=== PATIENT | female | born 1950 | race Caucasian/White ===

== ENCOUNTER → 2017-08-15 | Outpatient (CLI) | payer MEDICARE, MEDICAID | END | disposition home or self-care (01) | LOC: CFH 14:27 | PROVIDERS: ATTEND Family Medicine | DX: R05 Cough (principal) | CPT/HCPCS: 71020 ==

== ENCOUNTER → 2018-02-08 | Outpatient (CLI) | payer MEDICARE, MEDICAID | END | disposition home or self-care (01) | LOC: CFH 13:24 | PROVIDERS: ATTEND Family Medicine | DX: Z12.31 Encounter for screening mammogram for malignant neoplasm of breast (principal); Z13.820 Encounter for screening for osteoporosis; E04.2 Nontoxic multinodular goiter; N95.9 Unspecified menopausal and perimenopausal disorder | CPT/HCPCS: 76536; 77080; 77067 ==

== ENCOUNTER → 2018-11-20 | Outpatient (CLI) | payer MEDICARE, MEDICAID | END | disposition home or self-care (01) | LOC: CFH 08:37 | PROVIDERS: ATTEND Family Medicine | DX: R10.9 Unspecified abdominal pain (principal) | CPT/HCPCS: 76700 ==

== ENCOUNTER → 2019-02-11 | Outpatient (CLI) | payer MEDICARE, MEDICAID | END | disposition home or self-care (01) | LOC: CFH 08:50 | PROVIDERS: ATTEND Nurse Practitioner | DX: Z12.31 Encounter for screening mammogram for malignant neoplasm of breast (principal) | CPT/HCPCS: 77067 ==

== ENCOUNTER → 2020-07-27 | Outpatient (CLI) | payer MEDICARE, MEDICAID | END | disposition home or self-care (01) | LOC: CFH 07:52 | PROVIDERS: ATTEND Internal Medicine Cardiovascular Disease | DX: R07.89 Other chest pain (principal); I10 Essential (primary) hypertension | CPT/HCPCS: 78452; 93017; A9502 ==

== ENCOUNTER → 2020-09-03 | Outpatient (CLI) | payer MEDICARE, MEDICAID | END | disposition home or self-care (01) | LOC: CFH 06:39 | PROVIDERS: ATTEND Family Medicine | DX: R10.11 Right upper quadrant pain (principal) | CPT/HCPCS: 76705 ==

== ENCOUNTER 2020-11-26 06:31 | Day surgery (SDC) | payer MEDICARE, MEDICAID ==
[~2020-11-26] VITALS: Ht 160 cm; Wt 78.0 kg
[2020-11-26] MEDS ORDERED: ASPIRIN 325 MG TABLET EC PO ONE (07:00)
[2020-11-26] MEDS ORDERED: SODIUM CHLORIDE 0.9% 1,000 ML IV SCH ×2 (07:00→10:00)
[2020-11-26] MEDS ORDERED: PRAV20TA2 PO (07:07)
[2020-11-26] MEDS ORDERED: ENAL5TAB10 PO (07:07)
[2020-11-26 07:15] VITALS: BP 126/79
[2020-11-26 07:24] LABS: BASOPHILS % (AUTO) 1 % (0-1); EOSINOPHILS % (AUTO) 3 % (1-7); LYMPHOCYTES % (AUTO) 27 % (22-44); MD NO; MEAN CORPUSCULAR HGB CONC 33.7 g/dL (32.4-35.8); MEAN PLATELET VOLUME 7.6 fL (7.4-10.4); MONOCYTES % (AUTO) 10 % (2-9); NEUTROPHILS % (AUTO) 58 % (42-75); PLATELET COUNT 223 x10^3/uL (130-400); RED BLOOD COUNT 4.11 x10^6/uL (3.82-5.3); RED CELL DISTRIBUTION WIDTH 12.3 % (9.6-15.2)
[2020-11-26 07:32] LABS: ANION GAP 5 mmol/L (5-15); CALCIUM 8.8 mg/dL (8.5-10.1); CHLORIDE 110 mmol/L (98-107)
[2020-11-26] MEDS ORDERED: MIDAZOLAM 1 MG/ML, 5ML ONE (07:33)
[2020-11-26] MEDS ORDERED: FENTANYL PF 100 MCG/2ML ONE (07:33)
[2020-11-26] MEDS ORDERED: VERAPAMIL 2.5 MG/ML, 2ML ONE (07:34)
[2020-11-26] MEDS ORDERED: LIDOCAINE-MPF 1%, 5ML ONE (07:34)
[2020-11-26] MEDS ORDERED: HEPARIN 1,000 UNITS/ML, 10ML ONE (07:34)
== END 2020-11-26 11:00 | disposition home or self-care (01) ==
LOC: CACL 06:31
PROVIDERS: ATTEND Internal Medicine Cardiovascular Disease
DX: I25.119 Atherosclerotic heart disease of native coronary artery with unspecified angina pectoris (principal); I25.84 Coronary atherosclerosis due to calcified coronary lesion; I10 Essential (primary) hypertension; E78.2 Mixed hyperlipidemia; Z79.899 Other long term (current) drug therapy
CPT/HCPCS: 36415; 80048; 85025; 93460; 93571; 99156; 99157; C1769; C1894; J1644; J2250; J3010; Q9967

== ENCOUNTER 2021-04-01 08:37 | Outpatient (CLI) | payer MEDICARE, MEDICAID ==
[~2021-04-01 08:37] MED LIST: ENAL5TAB10 PO; PRAV20TA2 PO
== END 2021-04-01 23:59 | disposition home or self-care (01) ==
LOC: CFH 08:37
PROVIDERS: ATTEND Family Medicine
DX: Z12.31 Encounter for screening mammogram for malignant neoplasm of breast (principal)
CPT/HCPCS: 77063; 77067